=== PATIENT | female | born 1960 | race African-American/Black ===

== ENCOUNTER 2020-12-18 07:43 | Outpatient (CLI) | payer OTHER, SELFPAY ==
--- NOTE | ~2020-12-18 | MM_ITS ---
EXAMINATION: MM screening [facility] BI w king HISTORY: Screening mammogram TECHNIQUE: Craniocaudal and mediolateral oblique 3-D tomosynthesis images were obtained and synthetic 2-D images were generated. CAD analysis was submitted and interpreted. COMPARISON: 08/23/2018 bilateral digital screening mammogram 06/07/2012 bilateral diagnostic digital mammogram and bilateral breast ultrasound examination BREAST PARENCHYMAL COMPOSITION: The breasts are almost entirely fatty. FINDINGS: History of bilateral breast reduction. Scattered bilateral benign calcifications. Stable re traction on the left. There is no evidence of suspicious mass, calcification, or architectural distor tion to suggest malignancy in either breast. There has been no suspicious interval change. IMPRESSION: 1. No mammographic evidence of malignancy. 2. Recommend routine screening mammography in one year. BI-RADS Category 2: Benign finding(s). Reviewed, dictated and finalized at location A.
== END 2020-12-18 07:44 | disposition home or self-care (01) ==
PROVIDERS: PCP Internal Medicine; Visit Provider Obstetrics & Gynecology
DX: Z12.31 Encounter for screening mammogram for malignant neoplasm of breast (principal)
CPT/HCPCS: 77063; 77067

== ENCOUNTER 2023-11-10 13:29 | Outpatient (CLI) | payer OTHER, SELFPAY ==
--- NOTE | ~2023-11-10 | MM_ITS ---
EXAMINATION: MM screening [facility] BI w king HISTORY: Screening TECHNIQUE: Craniocaudal and mediolateral oblique 3-D tomosynthesis images were obtained and synthetic 2-D images were generated. CAD analysis was submitted and interpreted. COMPARISON: Comparison to multiple prior studies sequentially, with oldest reviewed study dated 08/12. BREAST PARENCHYMAL COMPOSITION: There are scattered areas of fibroglandular density. FINDINGS: There is no evidence of suspicious mass, calcification, or architectural distortion to sugg est malignancy in either breast. There has been no suspicious interval change. IMPRESSION: 1. No mammographic evidence of malignancy. 2. Recommend routine screening mammography in one year. BI-RADS Category 1: Negative Reviewed, dictated and finalized at location A. [employer]
== END 2023-11-10 13:30 | disposition home or self-care (01) ==
PROVIDERS: PCP Internal Medicine; Visit Provider Obstetrics & Gynecology
DX: Z12.31 Encounter for screening mammogram for malignant neoplasm of breast (principal)
CPT/HCPCS: 77063; 77067